=== PATIENT | female | born 1990 | race Caucasian/White ===

== ENCOUNTER → 2021-04-06 08:15 | Outpatient (CLI) | payer BC ==
[2016-06-10 11:04] VITALS: BMI 68.6
[~2021-04-06 08:15] MED LIST: PRILOSEC10 M1
[2021-04-06 09:57] LABS: ALBUMIN 3.1 g/dL (3.4-5.0); BILIRUBIN - DIRECT 0.09 mg/dL (0.00-0.30); BILIRUBIN - INDIRECT 0.12 mg/dL (0.00-1.00); BILIRUBIN - TOTAL 0.21 mg/dL (0.2-1.3); PROTEIN - SERUM 6.7 g/dL (6.4-8.2)
== END | disposition home or self-care (01) ==
LOC: D.US 08:00
PROVIDERS: ATTEND Internal Medicine Gastroenterology
DX: K76.0 Fatty (change of) liver, not elsewhere classified (principal)